=== PATIENT | male | born 1955 | race Caucasian/White ===

== ENCOUNTER → 2016-08-08 | Outpatient (CLI) | payer BC ==
--- NOTE | ~2016-08-08 | CT55 ---
[facility] A Service of [facility] RADIOLOGY TEXT RESULTS PATIENT: HERMINIA RIDLEY LOCATION: [facility] : 59 UNIT #: [id number] AGE: [address]: Yashira Matson MD SEX: M ORDER DR: [id number] [place] [id number] O MR#: [id number] Acc #: [id number] NAME: HERMINIA RIDLEY : 1955 SEX: M STUDY DATE/TIME: 08/08/2016 10:23 UNIT: [facility] ROOM: STUDY DESCRIPTION: CT Chest W Con Attending Physician: Yashira Matson M.D. Referring Physician: Yashira Matson M.D. Ordering Physician: Yashira Matson M.D. Primary Care Physician: Yashira Matson M.D. MEDICAL IMAGING REPORT This report is preliminary unless electronic signature is present. EXAM CT chest with contrast. INDICATIONS Melanoma diagnosed 2 weeks ago. Observation for metastatic disease. PROCEDURE Contrast-enhanced CT chest. This CT exam was performed with one or more of the following radiation dose reduction techniques: automatic exposure control, adjustment of mA and/or kV according to patient size, and iterative reconstruction. COMPARISON None. FINDINGS There is a 6 mm nodule in the left upper lobe. There is an 8 mm nodule in the right lung base. No pleural fluid or pneumothorax. No adenopathy. No aggressive appearing bone lesion. Refer to separately dictated abdomen and pelvis CT. IMPRESSION 6 mm nodule left upper lobe and an 8 mm nodule right lower lobe. Recommend attention on a 3-6 month follow up chest CT given provided history. Dictated by... Antoine Montez M.D. THIS IS AN ELECTRONICALLY VERIFIED REPORT Antoine Montez M.D. at 08/09/2016 2:29 PM [facility] A Service of [facility] RADIOLOGY TEXT RESULTS PATIENT: HERMINIA RIDLEY LOCATION: [facility] : 59 UNIT #: [id number] AGE: [address]: Yashira Matson MD SEX: M ORDER DR: Chelsea TD: 08/08/2016 19:01 JOB #: [id number] MEDICAL IMAGING REPORT Page 1 of 1
--- NOTE | ~2016-08-08 | CT2 ---
[facility] A Service of [facility] RADIOLOGY TEXT RESULTS PATIENT: HERMINIA RIDLEY LOCATION: [facility] : 59 UNIT #: [id number] AGE: [address]: Yashira Matson MD SEX: M ORDER DR: [id number] [place] [id number] O MR#: [id number] Acc #: [id number] NAME: HERMINIA RIDLEY : 1955 SEX: M STUDY DATE/TIME: 08/08/2016 10:23 UNIT: [facility] ROOM: STUDY DESCRIPTION: CT Abd and Pelv W Cont Attending Physician: Yashira Matson M.D. Referring Physician: Yashira Matsno M.D. Ordering Physician: Yashira Matson M.D. Primary Care Physician: Yashira Matson M.D. MEDICAL IMAGING REPORT This report is preliminary unless electronic signature is present. EXAM CT abdomen and pelvis with contrast. INDICATIONS Melanoma diagnosed 2 weeks ago. Staging. Observation for metastatic disease. PROCEDURE Contrast-enhanced CT of abdomen and pelvis. This CT exam was performed with one or more of the following radiation dose reduction techniques: automatic exposure control, adjustment of mA and/or kV according to patient size, and iterative reconstruction. FINDINGS Liver, spleen, show no focal lesion. Spleen enlarged measuring 15.4 cm. Kidneys, adrenal glands, pancreas unremarkable. Uncomplicated cholelithiasis. Bowel loops are nondilated. Appendix is normal. PELVIS WITH CONTRAST. No pelvic mass or fluid. No aggressive appearing bone lesion. IMPRESSION 1. No acute findings. No evidence for metastatic disease in the abdomen or pelvis. 2. Uncomplicated cholelithiasis. 3. Splenomegaly. 4. 1. Dictated by... Antoine Montez M.D. THIS IS AN ELECTRONICALLY VERIFIED REPORT [facility] A Service of [facility] RADIOLOGY TEXT RESULTS PATIENT: HERMINIA RIDLEY LOCATION: [facility] : 59 UNIT #: [id number] AGE: [address]: Yashira Matson MD SEX: M ORDER DR: Antoine Montez M.D. at 08/09/2016 2:29 PM MARIKA/gloria TD: 08/08/2016 19:22 JOB #: [id number] MEDICAL IMAGING REPORT Page 1 of 1
== END | disposition home or self-care (01) ==
LOC: SCT 08:11
DX: C69.41 Malignant neoplasm of right ciliary body (principal); R91.8 Other nonspecific abnormal finding of lung field; K80.20 Calculus of gallbladder without cholecystitis without obstruction; R16.1 Splenomegaly, not elsewhere classified
CPT/HCPCS: 71260; 74177; Q9967